=== PATIENT | female | born 1995 | race Caucasian/White ===

== ENCOUNTER 2019-06-07 12:56 | Emergency (ER) | payer SELFPAY ==
[~2019-06-07] VITALS: Ht 162.6 cm; Wt 97.5 kg
[~2019-06-07 12:56] MED LIST: CEPH-443 PO; HYDR-4011 PO; NAPR-985 PO; POTA10TA37 PO; SULF1TAB31 PO
[2019-06-07 13:00] VITALS: Ht 162.6 cm; Wt 97.5 kg
[2019-06-07] MEDS ORDERED: ACETAMINOPHEN 500 MG TAB PO STA (13:19)
[2019-06-07] MEDS ORDERED: LIDOCAINE 2% (MDV) 20 ML INJ INJ ONE (13:30)
[2019-06-07] MEDS ORDERED: SOD CHLORIDE 0.9% 500 ML IV ONE (14:30)
[2019-06-07] MEDS ORDERED: CLINDAMYCIN 600 MG/D5W (PMX) 50 ML IVPB SCH (14:30)
[2019-06-07] MEDS ORDERED: KETOROLAC 30 MG INJ IV STA (14:32)
[2019-06-07] MEDS ORDERED: POTASSIUM CHLORIDE (SR) 20 MEQ TAB PO STA (15:31)
[2019-06-07] MEDS ORDERED: IOHEXOL 300MG/ML 150 ML BTL ONE (15:47)
[2019-06-07] MEDS ORDERED: SOD CHLORIDE 0.9% 100 ML ONE (15:47)
--- NOTE | 2019-06-07 17:11 | ERD ---
ER Documentation Chief Complaint Chief Complaint Pt. here to have Pilonodal cysts re-evaluated HPI This is a 24-year-old female who presents to the ED for re-evaluation of an abscess to the left labia. Patient was seen in the ED 2 days ago for evaluation, at that time incision and drainage was unsuccessfully performed and patient was placed on Bactrim and Keflex, advised to place warm compresses to the abscess, and return within 48 hours for incision and drainage. Patient notes pain and swelling have improved since her previous presentation however admits to copious discharge from the abscess continued 7 out of 10 pain. Denies fevers, chills, sweats, back pain. She denies history of DM, CA, IVDA. ROS All systems reviewed and are negative except as per history of present illness. Medications Home Meds Active Scripts Potassium Chloride* (K-Dur*) 10 Meq Tab.prt.sr, 10 MEQ PO BID for 4 Days, #8 Prov:BECKI GEORGE PA-C 06/07/19 Naproxen* (Naprosyn*) 500 Mg Tablet, 500 MG PO BID PRN for PAIN AND/OR INFLAMMATION, #30 TAB Prov:JOSESITO YEUNG PA-C 06/05/19 Hydrocodone/Acetaminophen ([place] 5-325 Tablet) 1 Each Tablet, 1 TAB PO Q6H PRN for PAIN, #7 TAB Prov:JOSESITO YEUNG PA-C 06/05/19 Cephalexin* (Keflex*) 500 Mg Capsule, 500 MG PO QID for 7 Days, CAP Prov:JOSESITO YEUNG PA-C 06/05/19 Sulfamethoxazole/Trimethoprim* (Bactrim Ds* Tablet) 1 Each Tablet, 1 TAB PO BID, #14 TAB Prov:JOSESITO YEUNG PA-C 06/05/19 Allergies Allergies: Coded Allergies: No Known Allergy (Unverified , 06/05/19) PMhx/Soc Medical and Surgical Hx: pt denies Medical Hx, pt denies Surgical Hx Hx Alcohol Use: No Hx Substance Use: No Hx Tobacco Use: No Physical Exam Vitals Vital Signs Date Temp Pulse Resp B/P (MAP) Pulse Ox O2 O2 Flow FiO2 Time Delivery Rate 06/07/19 86 128/87 17:17 (101) 06/07/19 99.3 108 20 160/97 98 13:00 (118) Physical Exam GENERAL: Alert and coherent. Well appearing, non-toxic. No acute distress. HEAD: Normocephalic, atraumatic. EYES: EOMI. PERRL. No conjunctival injection. NECK: Supple. Full range of motion. Trachea midline. No lymphadenopathy. RESPIRATORY: No tachypnea. Clear to auscultation bilaterally. No wheezing, rales or rhonchi. No accessory muscle use. CV: Regular rate and rhythm. No murmurs, rubs, or gallops. ABDOMEN: Soft, non-distended, non-tender. No guarding. : Large, ruptured abscess extending through entirety of the left labia majora, with foul smelling discharge. Visible darkening and possible necrotic tissue seen at the most distal portion of the labia majoria. Multiple open cavities. Proximal portion of labia majora is erythematous and warm, tender to touch. BACK: Full ROM. No CVA tenderness. EXTREMITIES: No deformity. No clubbing, cyanosis or edema. Equal pulses x 4. SKIN: Warm and dry. No obvious rashes, erythema, or petechiae. NEUROLOGIC: Alert and oriented x3. Appropriate speech, mood and affect. Face is symmetric. Speech is normal. CN II-XII intact. Moves all extremities equally. Ambulates with a strong, steady gait. Result Diagram: 06/07/19 1436 06/07/19 1436 Results 24 hrs Laboratory Tests Test 06/07/19 13:39 06/07/19 14:36 POC Beta HCG, Qualitative NEGATIVE White Blood Count 13.8 10^3/ul Red Blood Count 4.40 10^6/ul Hemoglobin 13.9 g/dl Hematocrit 41.8 % Mean Corpuscular Volume 95.0 fl Mean Corpuscular Hemoglobin 31.6 pg Mean Corpuscular Hemoglobin Concent 33.3 g/dl Red Cell Distribution Width 12.8 % Platelet Count 267 10^3/UL Mean Platelet Volume 10.1 fl Immature Granulocytes % 1.200 % Neutrophils % 66.8 % Lymphocytes % 19.3 % Monocytes % 11.2 % Eosinophils % 0.8 % Basophils % 0.7 % Nucleated Red Blood Cells % 0.0 /100WBC Immature Granulocytes # 0.170 10^3/ul Neutrophils # 9.2 10^3/ul Lymphocytes # 2.7 10^3/ul Monocytes # 1.5 10^3/ul Eosinophils # 0.1 10^3/ul Basophils # 0.1 10^3/ul Nucleated Red Blood Cells # 0.0 10^3/ul Prothrombin Time 13.5 Sec Prothrombin Time Ratio 1.1 INR International Normalized Ratio 1.02 Activated Partial Thromboplast Time 33.3 Sec Thrombin Time 13.9 SEC Sodium Level 144 mmol/L Potassium Level 3.1 mmol/L Chloride Level 104 mmol/L Carbon Dioxide Level 28 mmol/L Anion Gap 12 Blood Urea Nitrogen 13 mg/dl Creatinine 0.64 mg/dl Est Glomerular Filtrat Rate mL/min > 60 mL/min Glucose Level 98 mg/dl Calcium Level 9.3 mg/dl Total Bilirubin 0.3 mg/dl Direct Bilirubin 0.00 mg/dl Indirect Bilirubin 0.3 mg/dl Aspartate Amino Transf (AST/SGOT) 22 IU/L Alanine Aminotransferase (ALT/SGPT) 19 IU/L Alkaline Phosphatase 131 IU/L Total Protein 8.2 g/dl Albumin 4.0 g/dl Globulin 4.20 g/dl Albumin/Globulin Ratio 0.95 Serum HCG, Qualitative NEGATIVE Current Medications Medications Dose Sig/All Start Time Status Last (Trade) Ordered Route PRN Stop Time Admin Dose Reason Admin Lidocaine 20 ml ONCE ONCE 06/07/19 DC (Xylocaine INJ 13:30 2% (Mdv) 20 06/07/19 13:31 ml) 1,000 mg ONCE STAT 06/07/19 DC 06/07/19 Acetaminophen PO 13:19 13:34 (Tylenol 06/07/19 13:20 Tab) Sodium 500 ml @ Q1H ONCE 06/07/19 DC 06/07/19 Chloride 500 mls/hr IV 14:30 14:43 06/07/19 15:29 Clindamycin 50 ml @ 50 ONCE IVPB 06/07/19 DC 06/07/19 HCl/ mls/hr 14:30 14:44 Dextrose 06/07/19 15:29 Ketorolac 30 mg ONCE STAT 06/07/19 DC 06/07/19 Tromethamine IV 14:32 14:42 (Toradol) 06/07/19 14:33 Potassium 20 meq ONCE STAT 06/07/19 DC 06/07/19 Chloride PO 15:31 15:39 (Klor-Con 20) 06/07/19 15:35 IV Flush 10 ml STK-MED 06/07/19 DC 06/07/19 (NS 10 ml) ONCE .ROUTE 15:47 16:03 06/07/19 15:48 Sodium 100 ml @ ud STK-MED 06/07/19 DC 06/07/19 Chloride ONCE .ROUTE 15:47 16:03 06/07/19 15:48 Iohexol 150 ml STK-MED 06/07/19 DC 06/07/19 (Omnipaque ONCE .ROUTE 15:47 16:03 300mg/ ml) 06/07/19 15:48 Procedures/MDM PROCEDURE: CT Pelvis with contrast. FINDINGS: Visualized mesentery/peritoneum: No evidence of free fluid or air. No mesenteric adenopathy identified. Visualized hollow viscera: Allowing for variable degrees of distension, the CT appearance of the bowel loops situated within the pelvis are unremarkable. The appendix is identified and normal. There is formed stool within the colonic loops. Pelvis/Reproductive organs: The pelvic organs are normal. Pelvic sidewalls and inguinal regions are clear. There are mildly asymmetric prominent left inguinal nodes measuring up to 13 mm in short axis diameter.. Musculoskeletal: No suspicious osseous lesion is detected. There is asymmetric inflammatory stranding in the left labia majora anteriorly, far removed from the external and internal anal sphincter and vaginal vault. No evidence of inflammation extending into the ischiorectal fossa. Locules of air in the soft tissues with overlying foamy packing material and superficial soft tissue defect, which may be secondary to debridement. IMPRESSION: Asymmetric inflammatory stranding in the anterior left labia majora, without evidence of fistulous connection to the anal sphincter or vaginal vault. No evidence of involvement of the ischiorectal fossae. Superficial soft tissue defect in the left may be majora with overlying packing material and locules of air within the left labia majora soft tissue, which appears likely secondary to debridement, given the confined and unilateral findings. Further clinical correlation with procedural history is recommended to avoid confusion with Mauricio's gangrene ( usually seen in the setting of severe diabetic, elderly or severely immunocompromised patient who is toxic). Mild asymmetric enlargement of the left inguinal nodes, measuring up to 13 mm in short axis diameter. Abscess Incision and Drainage with irrigation by me: Location: Left labia majora Anesthesia: Local 2% Lidocaine Technique: No incision was made to the abscess as multiple open sites already present. Purulent discharge expressed from the most proximal opening of the abscess and disrupted loculations w/ instrumentation. A blood clot with surrounding necrotic tissue was debrided at the distal most opening of the abscess. No further manipulation performed. Packing: None Complications: Neurovascularly intact post procedure Strict 48 hour wound check discussed. Scar minimization instructions given. MDM: This is an otherwise healthy 24yo F who presents to the ED for evaluation of an infected bartholan abscess to the left labia majora. Pt notes improvement in symptoms after initial prestentation, however upon physical exam, abscess extremely malodorous and discolored. Local anesthesia administered to abscess, with no incision made as multiple openings already present to abscess, and minimal purulent discharge as well as blood clots expressed. Given presentation of abscess, case discussed with Dr. Moreno who also evaluated abscess and recommended CT imaging, labs, as well as IV antibiotics. Pt received IV clindam ycin and labs showed a mildly elevated white count, but I believe this is due to acute infection rather than sepsis, labs also did show mildly low potassium, pt was treated with k-dur in ED. CT imaging negative for fistula or deep tracking abscess, and consistent with procedural manipulation. I have low suspicion for sepsis, or fourniers gangrene at this time. I have counseled this patient regarding findings and have advised her regarding strict ED follow-up in 48hrs for repeat wound evaluation. Pt is to return sooner if symptoms such as severe/increased pain, swelling, fevers, or chills develop, as well as any new or worsening symptoms. Pt is advised to continue with antibiotics as prescribed previously. At this time pt is stable for discharge, with close follow-up. Departure Diagnosis: Primary Impression: Bartholin's gland infection Additional Impression: Low blood potassium Condition: Stable Patient Instructions: Bartholin's Cyst (I And D), Potassium Referrals: COMMUNITY CLINICS YOU HAVE RECEIVED A MEDICAL SCREENING EXAM AND THE RESULTS INDICATE THAT YOU DO NOT HAVE A CONDITION THAT REQUIRES URGENT TREATMENT IN THE EMERGENCY DEPARTMENT. FURTHER EVALUATION AND TREATMENT OF YOUR CONDITION CAN WAIT UNTIL YOU ARE SEEN IN YOUR DOCTORS OFFICE WITHIN THE NEXT 1-2 DAYS. IT IS YOUR RESPONSIBILITY TO MAKE AN APPOINTMENT FOR FOLOW-UP CARE. IF YOU HAVE A PRIMARY DOCTOR --you should call your primary doctor and schedule an appointment IF YOU DO NOT HAVE A PRIMARY DOCTOR YOU CAN CALL OUR PHYSICIAN REFERRAL HOTLINE AT IF YOU CAN NOT AFFORD TO SEE A PHYSICIAN YOU CAN CHOSE FROM THE FOLLOWING [facility]LY [facility], [facility] [address] [facility]. [facility] [address] [facility] [address] [facility] [address] [facility] [address] [facility] [address] [facility] [employer] [employer] [address] [facility] [address] [place] [address] OFFICE FAX , LEIGH [address] [place] [address] [address] [address] [place] [address] [address] [facility] [address] [facility] [address] [address] [address] [place] [address] [facility] [address] [place] [address] [address] [facility] [address] - [address] [place] [address] [address] [address] [facility], [place] [address] [address] ROJAS [facility] [address] [place] [address] [facility] Hours: 8:00 am - 5:00 pm Additional Instructions: You were seen today for Bartholin cyst. CT imaging performed did not reveal a fistula or an acute abnormality. At this time you are stable for discharge however please return within 48 hours for wound reevaluation. Is also recommended that you follow-up with an CABLE TOOL DRILLER as soon as possible, you have been given a list of CABLE TOOL DRILLER's in the area as well as a referral to [facility]. Return to the ED if you develop any fever, chills, new or worsening symptoms. BECKI GEORGE PA-C Jun 07, 2019 17:11
[2019-06-07 17:17] VITALS: BP 128/87; PULSE 86
== END 2019-06-07 17:18 | disposition home or self-care (01) ==
LOC: FTE 12:56
DX: N75.8 Other diseases of Bartholin's gland (principal); E87.6 Hypokalemia; N75.1 Abscess of Bartholin's gland
CPT/HCPCS: 56420; 72193; 80053; 81025; 84703; 85025; 85049; 85610; 85670; 85730; 96365; 96375; 99285; J1885; J7040; Q9967